=== PATIENT | female | born 1995 | race African-American/Black ===

== ENCOUNTER 2016-08-21 14:21 | Emergency (ER) | payer SELFPAY ==
[~2016-08-21] VITALS: Ht 157.5 cm; Wt 99.5 kg
[~2016-08-21 14:21] MED LIST: BACT800T5 PO; CEPH500C3 PO; MEDR150P IM
[2016-08-21 14:30] VITALS: BP 135/68; PULSE 86; RESP 14; TEMP 98.1; O2SAT 97
--- NOTE | 2016-08-21 14:49 | PD ---
HPI Chief Complaint: Abdominal Pain Time Seen by Provider: 14:49 Travel History International Travel<30 days: No Contact w/Intl Traveler<30days: No Traveled to known affect area: No History of Present Illness HPI 21-year-old female presents to ED for evaluation of 3 day history of nausea, lower abdominal cramping. Gradual onset, worse today. Patient denies fever, chills, anorexia, changes in bowel habits, increased urinary urgency, dysuria, back pain, vaginal discharge or odor. The patient uses the Depo-Provera shot for contraception, last injection July 01. She denies recent antibiotic use. No menses for "years." She is sexually active with a single male partner. Patient also complains of constant chest pain between her breasts, worsened by certain movements and palpation of the area. She denies associated palpitations, diaphoresis. She does not smoke, denies family history of SD. Denies chronic health problems, takes no daily medications. NKDA. PFSH Past Medical History ?: Not Social History Alcohol Use: No Tobacco Use: No Allergies-Medications (Allergen,Severity, Reaction): Coded Allergies: No Known Allergies (Unverified , 06/23/15) Reported Meds & Prescriptions Reported Meds & Active Scripts Active Keflex (Cephalexin Monohydrate) 500 Mg Cap 500 Mg PO Q6HR 10 Days Bactrim DS (Sulfamethoxazole-Trimethoprim DS) 1 Tab Tab 1 Tab PO BID 10 Days Reported Depoprovera 150 Mg Vial (Medroxyprogesterone Acetate) 150 Mg/Ml Susp 150 Mg IM Q90D Review of Systems Except as stated in HPI: all other systems reviewed are Neg Physical Exam Narrative GENERAL: Well-nourished, well-developed black female in no acute distress. SKIN: Warm and dry. Tender to palpation between the breasts. HEAD: Normocephalic. EYES: No scleral icterus. No injection or drainage. NECK: Supple, trachea midline. No JVD or lymphadenopathy. CARDIOVASCULAR: Regular rate and rhythm without murmurs, gallops, or rubs. 2+ DP and radial pulses bilaterally. RESPIRATORY: Breath sounds clear and equal bilaterally. No accessory muscle use. GASTROINTESTINAL: Abdomen soft, non-tender, nondistended. No suprapubic tenderness. Active bowel sounds. MUSCULOSKELETAL: No cyanosis, or edema. Patient is ambulatory and moves extremities spontaneously. BACK: Nontender without obvious deformity. No CVA tenderness. Data Data Last Documented VS Vital Signs Date Time Temp Pulse Resp B/P Pulse Ox O2 Delivery O2 Flow Rate FiO2 08/21/16 14:30 98.1 86 14 135/68 97 Room Air Orders Complete Blood Count With Diff (08/21/16 15:08) Comprehensive Metabolic Panel (08/21/16 15:08) Urinalysis - C+S If Indicated (08/21/16 15:08) Ed Urine Pregnancytest Poc (08/21/16 15:08) Ondansetron Odt (Zofran Odt) (08/21/16 15:15) MDM Medical Decision Making Medical Screen Exam Complete: Yes Emergency Medical Condition: Yes Differential Diagnosis Cystitis versus versus ovarian cyst versus STI versus other Narrative Course 21-year-old female presents to the ED for evaluation of 3 day history of lower abdominal cramping, nausea. Gradual onset, nausea worse today. No menses secondary to Depo-Provera contraception, last injection July 01. No recent antibiotic use. Sexually active with a single male partner. Denies fevers, chills, anorexia, changes in bowel habits, urinary urgency, dysuria, back pain, vaginal discharge or odor. Also complains of constant chest pain between the breast, worsened by movement and palpation of the area. Denies associated palpitations, diaphoresis. Nonsmoker, no family history of SD. Vitals reviewed. Physical exam reveals a nontoxic-appearing black female in no acute distress. Abdominal exam is reassuring. Lab work, UA, urine test ordered. Patient is amenable to pelvic exam, STI screening. She'll be transferred to the medical pods. Please see oncoming provider note for disposition. Annette Perry Aug 21, 2016 14:49 Annette Perry Aug 21, 2016 14:49
[2016-08-21] MEDS ORDERED: ONDANSETRON ODT 4 MG TAB PO ONE (15:15)
[2016-08-21 15:48] LABS: BASOPHIL % 0.3 % (0.0-2.0); EOSINOPHIL % 0.1 % (0.0-4.0); HEMATOCRIT 39.6 % (35.0-46.0); HEMO FLAGS DIFF FINAL; LYMPH % 12.4 % (9.0-44.0); LYMPHOCYTE # 1.6 TH/MM3 (1.0-4.8); MEAN CELL VOLUME 82.1 FL (80.0-100.0); MEAN CORPUSCULAR HEMOGLOBIN 27.4 PG (27.0-34.0); MEAN CORPUSCULAR HGB CONC 33.3 % (32.0-36.0); NEUT % 83.2 % (16.0-70.0); PLATELET COUNT 336 TH/MM3 (150-450); RED BLOOD COUNT 4.82 MIL/MM3 (4.00-5.30); RED CELL DISTRIBUTION WIDTH 14.4 % (11.6-17.2); WHITE BLOOD COUNT 13.2 TH/MM3 (4.0-11.0)
[2016-08-21 15:55] LABS: BACTERIA, URINE OCC /hpf; BLOOD, URINE NEG (NEG); COMMENT (UR) CULT NOT INDICATED; CULTURE IF INDICATED CULT NOT INDICATED; GLUCOSE,URINE NEG (NEG); KETONE, URINE NEG (NEG); NITRITE,URINE NEG (NEG); PH, URINE 7.5 (5.0-8.5); SQUAMOUS EPITHELIAL CELL URINE 6 /hpf (0-5); URINE COLOR YELLOW (YELLW/STRAW)
[2016-08-21] MEDS ORDERED: TRAM50TA PO (16:03)
--- NOTE | 2016-08-21 16:06 | PD ---
Data Data Last Documented VS Vital Signs Date Time Temp Pulse Resp B/P Pulse Ox O2 Delivery O2 Flow Rate FiO2 08/21/16 14:30 98.1 86 14 135/68 97 Room Air Orders Complete Blood Count With Diff (08/21/16 15:08) Comprehensive Metabolic Panel (08/21/16 15:08) Urinalysis - C+S If Indicated (08/21/16 15:08) Ed Urine Pregnancytest Poc (08/21/16 15:08) Ondansetron Odt (Zofran Odt) (08/21/16 15:15) Labs Laboratory Tests Test 08/21/16 15:30 White Blood Count 13.2 TH/MM3 Red Blood Count 4.82 MIL/MM3 Hemoglobin 13.2 GM/DL Hematocrit 39.6 % Mean Corpuscular Volume 82.1 FL Mean Corpuscular Hemoglobin 27.4 PG Mean Corpuscular Hemoglobin 33.3 % Concent Red Cell Distribution Width 14.4 % Platelet Count 336 TH/MM3 Mean Platelet Volume 7.9 FL Neutrophils (%) (Auto) 83.2 % Lymphocytes (%) (Auto) 12.4 % Monocytes (%) (Auto) 4.0 % Eosinophils (%) (Auto) 0.1 % Basophils (%) (Auto) 0.3 % Neutrophils # (Auto) 11.0 TH/MM3 Lymphocytes # (Auto) 1.6 TH/MM3 Monocytes # (Auto) 0.5 TH/MM3 Eosinophils # (Auto) 0.0 TH/MM3 Basophils # (Auto) 0.0 TH/MM3 CBC Comment DIFF FINAL Differential Comment Urine Color YELLOW Urine Turbidity HAZY Urine pH 7.5 Urine Specific [place] 1.016 Urine Protein NEG mg/dL Urine Glucose (UA) NEG mg/dL Urine Ketones NEG mg/dL Urine Occult Blood NEG Urine Nitrite NEG Urine Bilirubin NEG Urine Urobilinogen LESS THAN 2.0 MG/DL Urine Leukocyte Esterase SMALL Urine RBC LESS THAN 1 /hpf Urine WBC 2 /hpf Urine Squamous Epithelial 6 /hpf Cells Urine Bacteria OCC /hpf Microscopic Urinalysis Comment CULT NOT INDICATED Sodium Level 136 MEQ/L Potassium Level 3.7 MEQ/L Chloride Level 105 MEQ/L Carbon Dioxide Level 22.4 MEQ/L Anion Gap 9 MEQ/L Blood Urea Nitrogen 9 MG/DL Creatinine 0.95 MG/DL Estimat Glomerular Filtration 90 ML/MIN Rate Random Glucose 100 MG/DL Calcium Level 9.7 MG/DL Total Bilirubin 0.3 MG/DL Aspartate Amino Transf 15 U/L (AST/SGOT) Alanine Aminotransferase 20 U/L (ALT/SGPT) Alkaline Phosphatase 84 U/L Total Protein 8.3 GM/DL Albumin 3.9 GM/DL [facility] Supervised Visit with EVELYN: Yes Narrative Course Patient transferred back to the pod arrived evaluated the patient She is soft benign nontender abdomen Pelvic: No discharge or bleeding. Cervix closed with no motion tenderness Urine is negative Urinalysis is normal CBC shows minimal nonspecific leukocytosis of 13,000 Metabolic profile is normal LFTs are normal Etiology of her pelvic pain is nonspecific. Not consistent with appendicitis. Symptoms are bilateral and there is no right lower quadrant tenderness on exam. She is eating well without difficulty. Wrote some tramadol for symptom relief. Recommend primary care follow-up. Recommend she return if she worsens in terms of pain or develops fever or vomiting. Diagnosis Primary Impression: Pelvic pain Additional Instruction: The patient was advised to follow up with their physician and return if they worsen. The patient was warned about potential sedation for the medications they will receive on prescription. Med/Other Pt SpecificInfo: Prescription(s) given Scripts Ondansetron (Zofran)4 Mg Tab4 Mg PO Q6HR PRN (NAUSEA OR VOMITING) #12 TAB Ref 0 Prov:Jordan Weiss MD 08/21/16 Tramadol 50 Mg Tab50 Mg PO Q6H PRN (PAIN) #15 TAB Ref 0 Prov:Jordan Weiss MD 08/21/16 Disposition: DISCHARGE HOME Condition: Stable Jordan Weiss MD Aug 21, 2016 16:06
[2016-08-21 16:20] LABS: ALT (GPT) 20 U/L (10-53); ANION GAP 9 MEQ/L (5-15); AST (GOT) 15 U/L (15-37); BICARBONATE 22.4 MEQ/L (21.0-32.0); BLOOD UREA NITROGEN 9 MG/DL (7-18); CHLORIDE 105 MEQ/L (98-107); GLOMERULAR FILTRATION RATE 90 ML/MIN (>89); POTASSIUM 3.7 MEQ/L (3.5-5.1); SODIUM (NA) 136 MEQ/L (136-145)
[2016-08-21 16:23] LABS: ALKALINE PHOSPHATASE 84 U/L (45-117); TOTAL BILIRUBIN ADULT 0.3 MG/DL (0.2-1.0)
[2016-08-21] MEDS ORDERED: ZOFR4TAB PO (16:32)
== END 2016-08-21 19:48 | disposition home or self-care (01) ==
LOC: NEPB 14:21
DX: R10.2 Pelvic and perineal pain (principal)
CPT/HCPCS: 80053; 81001; 84703; 85025; 99284

== ENCOUNTER 2016-10-26 23:20 | Emergency (ER) | payer SELFPAY ==
[~2016-10-26] VITALS: Ht 157.5 cm; Wt 97.0 kg
[~2016-10-26 23:20] MED LIST changes: +TRAM50TA PO; +ZOFR4TAB PO
[2016-10-26 23:23] VITALS: BP 124/70; PULSE 78; RESP 16; TEMP 97.9; O2SAT 98
[2016-10-27] MEDS ORDERED: IBUPROFEN 800 MG TAB PO ONE (01:45)
[2016-10-27] MEDS ORDERED: CLINDAMYCIN PHOS 600 MG/4 ML VIAL IM ONE (01:45)
[2016-10-27] MEDS ORDERED: ACETAMINOPHEN/HYDROcodone 325 MG/5 MG TAB PO ONE (01:45)
[2016-10-27] MEDS ORDERED: CLIN1CAP6 PO (01:46)
[2016-10-27] MEDS ORDERED: IBUP800T23 PO (01:46)
[2016-10-27] MEDS ORDERED: HYDR-3533 PO (01:46)
--- NOTE | 2016-10-27 01:55 | PD ---
HPI Chief Complaint: Skin Problem Time Seen by Provider: 01:38 Travel History International Travel<30 days: No Contact w/Intl Traveler<30days: No Traveled to known affect area: No History of Present Illness HPI Examined in the presence of a female nurse. 21-year-old female with history of recurrent pilonidal cyst formation presents for evaluation of the same. Symptom onset 2 weeks ago. She has been attempting to self treat with warm showers and rest however today the cyst began to spontaneously drain. Associated pain, throbbing, worse when sitting. She reports previous history of surgical excision by a surgeon in [place] however symptoms have recurred since then. No fevers or chills, abdominal pain. No other complaints. PFSH Past Medical History ?: Not Social History Alcohol Use: No Tobacco Use: No Allergies-Medications (Allergen,Severity, Reaction): Coded Allergies: No Known Allergies (Unverified , 10/26/16) Reported Meds & Prescriptions Reported Meds & Active Scripts Active Clindamycin (Clindamycin HCl) 300 Mg Cap 300 Mg PO Q6H 10 Days Ibuprofen 800 Mg Tab 800 Mg PO Q6HR PRN Lortab (Hydrocodone-Acetaminophen) 5-325 Mg Tab 1 Tab PO Q6H PRN Zofran (Ondansetron HCl) 4 Mg Tab 4 Mg PO Q6HR PRN Tramadol (Tramadol HCl) 50 Mg Tab 50 Mg PO Q6H PRN Keflex (Cephalexin Monohydrate) 500 Mg Cap 500 Mg PO Q6HR 10 Days Bactrim DS (Sulfamethoxazole-Trimethoprim DS) 1 Tab Tab 1 Tab PO BID 10 Days Reported Depoprovera 150 Mg Vial (Medroxyprogesterone Acetate) 150 Mg/Ml Susp 150 Mg IM Q90D Review of Systems Except as stated in HPI: all other systems reviewed are Neg Physical Exam Narrative GENERAL: Well-nourished female in no acute distress SKIN: Warm and dry. Pilonidal cyst formation, adequately draining purulent drainage. No surrounding erythema. CARDIOVASCULAR: Regular rate and rhythm. No murmur appreciated. RESPIRATORY: No accessory muscle use. Clear to auscultation. Breath sounds equal bilaterally. GASTROINTESTINAL: Abdomen soft, non-tender, nondistended. Hepatic and splenic margins not palpable. Data Data Last Documented VS Vital Signs Date Time Temp Pulse Resp B/P Pulse Ox O2 Delivery O2 Flow Rate FiO2 10/26/16 23:23 97.9 78 16 124/70 98 Room Air Orders Clindamycin Inj (Cleocin Inj) (10/27/16 01:45) Acetamin-Hydrocod 325-5 Mg ([place] 5-325 (10/27/16 01:45) Ibuprofen (Motrin) (10/27/16 01:45) MDM Medical Decision Making Medical Screen Exam Complete: Yes Emergency Medical Condition: Yes Medical Record Reviewed: Yes Differential Diagnosis Infected pilonidal cyst, abscess, cellulitis, sarcoma Narrative Course 21-year-old female with history of frequent polyvinyl cyst formation presents for evaluation of 2 week duration of painful pilonidal cyst. It is adequately draining at this time. She will be discharged with clindamycin and pain medicine, advised outpatient follow-up with a general surgeon. Diagnosis Primary Impression: Pilonidal cyst with abscess Additional Instructions: Medication as prescribed. Warm baths several times a day 20 minutes at a time. Follow-up with a general surgeon for definitive therapy. Return for any emergent medical conditions. Med/Other Pt SpecificInfo: Prescription(s) given Scripts Clindamycin 300 Mg [id number] Mg PO Q6H 10 Days Ref 0 Prov:Kalia Klein MD 10/27/16 Ibuprofen 800 Mg [id number] Mg PO Q6HR PRN (PAIN) #40 TAB Ref 0 Prov:Kalia Klein MD 10/27/16 Hydrocodone-Acetaminophen (Lortab)5-325 Mg Tab1 Tab PO Q6H PRN (PAIN) #20 TAB Ref 0 Prov:Kalia Klein MD 10/27/16 Disposition: 01 DISCHARGE HOME Condition: Stable Andrei Kay Oct 27, 2016 01:55
== END 2016-10-27 02:41 | disposition home or self-care (01) ==
LOC: NEPK 23:20
DX: L05.01 Pilonidal cyst with abscess (principal)
CPT/HCPCS: 96372

== ENCOUNTER 2017-10-06 14:58 | Emergency (ER) | payer OTHER ==
[~2017-10-06 14:58] MED LIST changes: -BACT800T5 PO; -CEPH500C3 PO; +CLIN300C5 PO; +HYDR-3533 PO; +IBUP1TAB7 PO; -ZOFR4TAB PO
--- NOTE | 2017-10-06 16:02 | PD ---
HPI Travel History International Travel<30 days: No Contact w/Intl Traveler<30days: No PFSH Social History Alcohol Use: No Tobacco Use: No Allergies-Medications (Allergen,Severity, Reaction): Coded Allergies: No Known Allergies (Unverified , 10/26/16) Reported Meds & Prescriptions Reported Meds & Active Scripts Active Clindamycin (Clindamycin HCl) 300 Mg Cap 300 Mg PO Q6H 10 Days Ibuprofen 800 Mg Tab 800 Mg PO Q6HR PRN Lortab (Hydrocodone-Acetaminophen) 5-325 Mg Tab 1 Tab PO Q6H PRN Tramadol (Tramadol HCl) 50 Mg Tab 50 Mg PO Q6H PRN Reported Depoprovera 150 Mg Vial (Medroxyprogesterone Acetate) 150 Mg/Ml Susp 150 Mg IM Q90D Blair Perez Oct 06, 2017 16:02
[2017-10-06 16:07] VITALS: BP 150/81; PULSE 86; RESP 16; TEMP 98.7; O2SAT 100
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
[2017-10-06] MEDS ORDERED: KETOROLAC TROMETHAMINE 60 MG/2 ML (IM) VIAL IM ONE (18:00)
[2017-10-06] MEDS ORDERED: ORPHENADRINE INJ 60 MG/2 ML AMP IM ONE (18:00)
[2017-10-06] MEDS ORDERED: IBUP-232 PO (18:17)
[2017-10-06] MEDS ORDERED: CYCL10TA PO (18:17)
[2017-10-06] MEDS ORDERED: TRAM50TA PO (18:17)
[2017-10-06 18:28] VITALS: BP 144/79; PULSE 77; RESP 18; O2SAT 99
== END 2017-10-06 19:16 | disposition home or self-care (01) ==
LOC: NETRI 14:58 → NEPD 19:16
DX: S20.219A Contusion of unspecified front wall of thorax, initial encounter (principal); S00.81XA Abrasion of other part of head, initial encounter; V49.40XA Driver injured in collision with unspecified motor vehicles in traffic accident, initial encounter
CPT/HCPCS: 70450; 70486; 71046; 72125; 96372; 99284; J1885; J2360